=== PATIENT | female | born 1990 ===

== ENCOUNTER 2020-08-27 08:00 | Inpatient (IN) | payer OTHER ==
[2020-08-30] MEDS: Lactated Ringers 1,000 ML IV SCH ×2 (05:45→06:22)
[2020-08-30] MEDS ORDERED: Sodium Chloride 0.9% 10 ML Syringe FLUSH PRN (06:00)
--- NOTE | 2020-08-30 06:27 | PCM.PREANE ---
Preanesthetic Assessment - Procedure Proposed Procedure: Repeat - Anesthesia/Transfusion/Family Hx Anesthesia History: Prior Anesthesia Without Reaction Family History of Anesthesia Reaction: No Transfusion History: No Prior Transfusion(s) Intubation History: Unknown - Review of Systems General: No Symptoms Pulmonary: No Symptoms, Cough Cardiovascular: No Symptoms Gastrointestinal: No Symptoms (GERD) Neurological: No Symptoms Other: Reports: None, Easy Bruising, Sinus Problem - Physical Assessment NPO Status Date: 08/29/20 NPO Status Time: 23:30 Vital Signs: Last Vital Signs Temp 36.7 C 08/30/20 05:30 Pulse 93 08/30/20 05:30 Resp 16 08/30/20 05:30 BP 123/72 08/30/20 05:30 Pulse Ox 100 08/30/20 05:30 Height: 1.52 m Weight: 91.217 kg ASA Class: 2 Mental Status: Alert & Oriented x3 Airway Class: Mallampati = 2 Dentition: Reports: Normal Dentition, Caries Thyro-Mental Finger Breadths: 3 Mouth Opening Finger Breadths: 3 ROM/Head Extension: Full Lungs: Clear to Auscultation, Normal Respiratory Effort Cardiovascular: Regular Rate, Regular Rhythm, No Murmurs - Lab Values: Laboratory Last Values WBC 11.42 K/mm3 (3.98-10.04) H 08/30/20 06:04 RBC 3.88 M/mm3 (3.98-5.22) L 08/30/20 06:04 Hgb 10.2 gm/dl (11.2-15.7) L D 08/30/20 06:04 Hct 31.9 % (34.1-44.9) L 08/30/20 06:04 MCV 82.2 fl (79.4-94.8) D 08/30/20 06:04 MCH 26.3 pg (25.6-32.2) 08/30/20 06:04 MCHC 32.0 g/dl (32.2-35.5) L 08/30/20 06:04 RDW Std Deviation 50.9 fL (36.4-46.3) H 08/30/20 06:04 Plt Count 219 K/mm3 (182-369) D 08/30/20 06:04 MPV 9.8 fl (9.4-12.3) 08/30/20 06:04 Neut % (Auto) 73.8 % (34.0-71.1) H 08/30/20 06:04 Lymph % (Auto) 16.1 % (19.3-51.7) L 08/30/20 06:04 [facility] % (Auto) 8.1 % (4.7-12.5) 08/30/20 06:04 Eos % (Auto) 1.3 (0.7-5.8) 08/30/20 06:04 Baso % (Auto) 0.2 % (0.1-1.2) 08/30/20 06:04 Neut # (Auto) 8.43 K/mm3 (1.56-6.13) H 08/30/20 06:04 Lymph # (Auto) 1.84 K/mm3 (1.18-3.74) 08/30/20 06:04 [facility] # (Auto) 0.92 K/mm3 (0.24-0.36) H 08/30/20 06:04 Eos # (Auto) 0.15 K/mm3 (0.04-0.36) 08/30/20 06:04 Baso # (Auto) 0.02 K/mm3 (0.01-0.08) 08/30/20 06:04 Above labs reviewed and noted and within acceptable ranges to proceed with scheduled procedure. - Allergies Allergies/Adverse Reactions: Allergies Allergy/AdvReac Type Severity Reaction Status Date / Time No Known Allergies Allergy Verified 08/30/20 00:20 - Anesthesia Plan Pre-Op Medication Ordered: None - Acknowledgements Anesthesia Type Planned: Spinal Pt an Appropriate Candidate for the Planned Anesthesia: Yes Alternatives and Risks of Anesthesia Discussed w Pt/Guardian: Yes Pt/Guardian Understands and Agrees with Anesthesia Plan: Yes PreAnesthesia Questionnaire [employer] History: Reports: Other OB/BYN History: C/S 2012,2016 Endocrine/Metabolic History: Reports: Obesity/BMI 30+ Hematologic History: Reports: Anemia, Iron Deficiency Other Hematologic History: Iron transfusion during this . - Past Surgical History HEENT Surgical History: Reports: Tonsillectomy GI Surgical History: Reports: Cholecystectomy Other GI Surgeries/Procedures: 2015 Female Surgical History: Reports: Breast Implant, Section - SUBSTANCE USE Tobacco Use Status *Q: Never Tobacco User Tobacco Use Within Last Twelve Months: No Second Hand Smoke Exposure: No Recreational Drug Use History: No - HOME MEDS Home Medications: Home Meds Cyclobenzaprine [Flexeril] 5 mg PO TID PRN 08/29/20 [History] Ferrous Sulfate 325 mg PO BID 08/29/20 [History] Ondansetron [Zofran ODT] 8 mg PO Q6H PRN 08/29/20 [History] Pnv No.95/Ferrous Fum/Folic AC [ Vitamin Tablet] 1 tab PO DAILY 08/29/20 [History] Promethazine [Phenergan] 25 mg PO Q6HR PRN 08/29/20 [History] polyethylene glycoL 3350 [MiraLAX] 17 gm PO DAILY 08/29/20 [History] - CURRENT (IN HOUSE) MEDS Current Meds: Current Medications Citric Acid/Sodium Citrate (Bicitra Solution) 30 ml PO ONETIME ONE Stop: 08/30/20 06:46 Cefazolin Sodium/Dextrose 2 gm (/ Premix) 50 mls @ 100 mls/hr IV ONETIME ONE Stop: 08/30/20 07:29 Oxytocin/Lactated Ringer's (Pitocin In Lr 10 Units/1,000 Ml) 10 unit in 1,000 mls @ 100 mls/hr IV ASDIRECTED RACHAEL Lactated Ringer's (Ringers, Lactated) 1,000 mls @ 125 mls/hr IV ASDIRECTED RACHAEL Last Admin: 08/30/20 06:22 Dose: 125 mls/hr Documented by: Metoclopramide HCl (Reglan) 10 mg IVPUSH ONETIME ONE Stop: 08/30/20 06:46 Sodium Chloride (Saline Flush) 10 ml FLUSH ASDIRECTED PRN PRN Reason: Keep Vein Open
[2020-08-30] MEDS ORDERED: Ondansetron 4 MG/2 ML SDV ONE (06:40)
[2020-08-30] MEDS ORDERED: ceFAZolin 1 GM Vial ONE (06:40)
[2020-08-30] MEDS ORDERED: Oxytocin 10 Units/1 ML SDV ONE (06:40)
[2020-08-30] MEDS ORDERED: Morphine PF 10 MG/10 ML SDV ONE (06:40)
[2020-08-30] MEDS ORDERED: Lactated Ringers 2,000 ML ONE (06:40)
[2020-08-30] MEDS ORDERED: Ketorolac 30 MG/ML SDV ONE (06:40)
[2020-08-30] MEDS ORDERED: Citric Acid/Sodium Citrate Solution 30 ML Cup PO ONE (06:45)
[2020-08-30] MEDS ORDERED: Metoclopramide 10 MG/2 ML SDV IVPUSH ONE (06:45)
--- NOTE | 2020-08-30 06:48 | PCM.OPNOTE ---
- General Post-Op/Procedure Note Date of Surgery/Procedure: 08/30/20 Operative Procedure(s): Repeat low transverse Findings: Moderate scar tissue between the rectus and fascia. Thin lower uterine segment. Baby girl in a vertex presentation. APGARS of 7 & 8. Weight of 3,800 grams. Normal appearance of the uterus, fallopian tubes, and ovaries Pre Op Diagnosis: History of x2. 39 weeks gestation Post-Op Diagnosis: Same Anesthesia Technique: Spinal Primary Surgeon: Maria E Remy Secondary Surgeon: Dhara Chavira Anesthesia Provider: Breanna Torres Reason Jack Setter Was Necessary: BMI of patient. Speed and safety of procedure Pathology: Cord blood collected. Placenta discarded Fluid Replacement, Intraop: 1,100 Output, Urine Amount: 150 EBL in mLs: 600 Complications: None Condition: Good Free Text/Narrative:: The risks, benefits, indications, potential complications, and alternatives were explained to the patient and informed consent obtained. After induction of anesthesia, the patient was placed in a supine position and then draped and prepped in the usual sterile manner. A Pfannenstiel incision was made and carried down through the subcutaneous tissue to the fascia. Fascial incision was made and extended transversely. The fascia was from the underlying rectus tissue superiorly and inferiorly. The peritoneum was identified and entered. Peritoneal incision was extended longitudinally. No bladder flap made. A low transverse uterine incision was made sharply with a scalpel and extended bluntly in a cephalocaudad direction. A baby girl was delivered from a vertex presentation with APGARS as above. After the umbilical cord was clamped and cut cord blood was obtained for evaluation. The placenta was removed intact and appeared normal. The uterus was exteriorized and cleared of clots. The uterine outline, tubes and ovaries appeared normal. The uterine incision was closed with running locked sutures of 0 Vicryl. Hemostasis was noted. The uterus was then placed back into the abdomen. The infracolic gutters were cleared of blood clots. Inspection at this time showed bleeding from perforating vessels in the rectus bilaterally. This bleeding was controlled with several interrupted sutures of 0 Vicryl and also application of Willy Seal. The fascia was then reapproximated with running sutures of 0 Vicryl. The subcutaneous tissue was irrigated with sterile warm normal saline, hemostasis obtained with cautery. This layer was closed with a running 0 Vicryl. The skin was reapproximated with running Subcuticular 4-0 Monocryl sutures. Instrument, sponge, and needle counts were correct prior the abdominal closure and at the conclusion of the case.
[2020-08-30] MEDS ORDERED: ceFAZolin 2 GM in Premix Bag 1 BAG IV ONE (07:00)
[2020-08-30] MEDS ORDERED: Albuterol 0.083% 2.5 MG/3 ML Neb Soln NEB PRN (07:35)
[2020-08-30] MEDS ORDERED: ePHEDrine 50 MG/ML SDV IVPUSH PRN (07:35)
[2020-08-30] MEDS ORDERED: Ondansetron 4 MG/2 ML SDV IVPUSH PRN (07:35)
[2020-08-30] MEDS ORDERED: diphenhydrAMINE 50 MG/ML SDV IVPUSH PRN ×2 (07:35→09:30)
[2020-08-30] MEDS ORDERED: HYDROmorphone 0.5 MG/0.5 ML Syringe IVPUSH PRN (07:35)
[2020-08-30] MEDS ORDERED: fentaNYL 100 MCG/2 ML SDV IVPUSH PRN (07:35)
[2020-08-30] MEDS ORDERED: Oxytocin/Lactated Ringers 10 UNIT/1,000 ML BAG IV SCH (08:00)
--- NOTE | 2020-08-30 08:59 | PCM.POSTAN ---
POST ANESTHESIA ASSESSMENT - MENTAL STATUS Mental Status: Alert - VITAL SIGNS Vital Signs: Last Vital Signs Temp 97.6 08/30/20 0853 Pulse 73 08/30/20 0853 Resp 22 08/30/20 0853 BP 95/57 08/30/20 0853 Pulse Ox 96% 08/30/20 0853 - RESPIRATORY Respiratory Status: Respiratory Rate WNL, Airway Patent, O2 Saturation Stable, Supplemental Oxygen - CARDIOVASCULAR CV Status: Pulse Rate WNL, Blood Pressure Stable - GASTROINTESTINAL GI Status: No Symptoms - POST OP HYDRATION Hydration Status: Adequate & Stable
[2020-08-30] MEDS ORDERED: Ondansetron 4 MG/2 ML SDV IV PRN (09:30)
[2020-08-30] MEDS ORDERED: Acetaminophen/oxyCODONE 325-5 MG Tab PO PRN (09:30)
[2020-08-30] MEDS ORDERED: Dextrose 5%-Lactated Ringers 1,000 ML IV SCH (09:30)
[2020-08-30] MEDS: Ketorolac 30 MG/ML SDV IVPUSH SCH ×2 (15:18→22:00)
--- NOTE | 2020-08-30 18:49 | PCM48HPAN ---
Post Anesthesia Note - EVALUATION WITHIN 48HRS OF ANESTHETIC Vital Signs in Normal Range: Yes Patient Participated in Evaluation: Yes Respiratory Function Stable: Yes Airway Patent: Yes Cardiovascular Function Stable: Yes Hydration Status Stable: Yes Pain Control Satisfactory: Yes Nausea and Vomiting Control Satisfactory: Yes Mental Status Recovered: Yes Vital Signs: Last Vital Signs Temp 97.6 F 08/30/20 12:00 Pulse 83 08/30/20 13:38 Resp 16 08/30/20 18:00 BP 110/62 08/30/20 12:00 Pulse Ox 98 08/30/20 18:00
[2020-08-30] MEDS: Docusate Sodium 100 MG Cap PO PRN (22:26)
[2020-08-31] MEDS: Ketorolac 30 MG/ML SDV IVPUSH SCH (04:00)
[2020-08-31] MEDS: Acetaminophen/oxyCODONE 325-5 MG Tab PO PRN ×4 (09:40→23:30)
[2020-08-31] MEDS: Docusate Sodium 100 MG Cap PO PRN (09:40)
[2020-08-31] MEDS: Ibuprofen 600 MG Tab PO PRN ×2 (13:03→19:09)
[2020-09-01] MEDS: Ibuprofen 600 MG Tab PO PRN ×2 (02:18→09:04)
[2020-09-01] MEDS: Acetaminophen/oxyCODONE 325-5 MG Tab PO PRN ×2 (03:40→09:04)
--- NOTE | 2020-09-01 08:30 | PCM.DCSUM1 ---
Discharge Summary - Hospital Course Free Text/Narrative:: Christi is a 30-year-old multigravida female who was admitted on the a.m. of 08/30/2020 for elective repeat section. Please see admission history and physical. Patient was taken to section and delivered a viable, 3800 g female infant with Apgars of 7 and 8. There is normal appearance of uterus fallopian tubes and ovaries. There was some extra bleeding with moderate scarring between the rectus and fascial layers of the abdominal wall. These were controlled without problems. Postoperatively pain was controlled with Duramorph and Toradol initially and switched to ibuprofen and Percocet after 24 hours. Her postoperative recovery was unremarkable. Vital signs remained stable, patient remained afebrile and ambulatory activity was normal. She has minimal lochia. Incision appears to be healing well. She is bottlefeeding. Patient is discharged to home on 09/01/2020. Discharge instructions are given. Condition: Good. Diagnosis: Stroke: No - Discharge Data Discharge Date: 09/01/20 Discharge Disposition: Home, Self-Care 01 Condition: Good - Referral to Home Health Primary Care Physician: Maria E Remy MD - Patient Summary/Data Operative Procedure(s) Performed: Repeat low transverse - Patient Instructions Diet: Regular Diet as Tolerated Activity: As Tolerated (The course of tampons until bleeding resolves. No lifting greater than 15 pounds or driving a car x1 week.) Driving: Do Not Drive Showering/Bathing: May Shower Wound/Incision Care: Keep Operative Site/Wound Site Clean and Dry Notify Provider of: Fever, Increased Pain, Swelling and Redness, Nausea and/or Vomiting - Discharge Plan Home Medications: Home Meds Cyclobenzaprine [Flexeril] 5 mg PO TID PRN 08/29/20 [History] Ferrous Sulfate 325 mg PO BID 08/29/20 [History] Pnv No.95/Ferrous Fum/Folic AC [ Vitamin Tablet] 1 tab PO DAILY 08/29/20 [History] polyethylene glycoL 3350 [MiraLAX] 17 gm PO DAILY 08/29/20 [History] Acetaminophen/oxyCODONE [Percocet 325-5 MG] 2 tab PO Q4H PRN tablet 09/01/20 [Rx] Ibuprofen [Motrin] 600 mg PO Q6H PRN tablet 09/01/20 [Rx] Referrals: Maria E Remy MD [Primary Care Provider] - ([facility] to 6 weeks. Patient to call for an appointment.) - Discharge Summary/Plan Comment DC Time >30 min.: No Discharge Summary/Plan Comment: Discharge instructions: 1. Discharge home 2. Diet, activity and follow-up discussed with patient. 3. Precautions given concern increased pain, bleeding, temperature, signs/symptoms of DVT/PE. 4. Medications per home medication was printed, discussed with and given to the patient. 5. [facility] weeks[facility] to make an appointment. Diagnosis: 1. Term -delivered 2. History of previous section affecting this pregnancydelivered Condition: Good - Patient Data Vitals - Most Recent: Last Vital Signs Temp 36.6 C 09/01/20 03:38 Pulse 67 09/01/20 03:38 Resp 14 09/01/20 03:38 BP 115/68 09/01/20 03:38 Pulse Ox 100 09/01/20 03:38 Weight - Most Recent: 91.217 kg I&O - Last 24 hours: Intake & Output 08/31/20 09/01/20 09/01/20 22:59 06:59 14:59 Intake Total 240 Balance 240 Med Orders - Current: Current Medications Albuterol (Proventil Neb Soln) 2.5 mg NEB ONETIME PRN PRN Reason: Cough Diphenhydramine HCl (Benadryl) 25 mg IVPUSH Q6H PRN PRN Reason: pruritis Last Admin: 08/30/20 12:16 Dose: 25 mg Documented by: Diphenhydramine HCl (Benadryl) 25 mg IVPUSH Q6H PRN PRN Reason: Itching or Nausea Docusate Sodium (Colace) 100 mg PO Q12H PRN PRN Reason: Constipation Last Admin: 08/31/20 09:40 Dose: 100 mg Documented by: Ephedrine Sulfate (Ephedrine Sulfate) 5 mg IVPUSH ASDIRECTED PRN PRN Reason: Hypotension Fentanyl (Sublimaze) 50 mcg IVPUSH Q20M PRN PRN Reason: Pain Hydromorphone HCl (Dilaudid) 0.5 mg IVPUSH Q10M PRN PRN Reason: Pain (severe 7-10) Ibuprofen (Motrin) 600 mg PO Q6H PRN PRN Reason: mild pain or fever Last Admin: 09/01/20 02:18 Dose: 600 mg Documented by: Ondansetron HCl (Zofran) 4 mg IVPUSH ONETIME PRN PRN Reason: Nausea/Vomiting Ondansetron HCl (Zofran) 4 mg IV Q8H PRN PRN Reason: Nausea/Vomiting Oxycodone/Acetaminophen (Percocet 325-5 Mg) 1 tab PO Q4H PRN PRN Reason: Pain (moderate 4-6) Last Admin: 09/01/20 03:40 Dose: 1 tab Documented by: Oxycodone/Acetaminophen (Percocet 325-5 Mg) 2 tab PO Q4H PRN PRN Reason: Pain (severe 7-10) Discontinued Medications Cefazolin Sodium (Ancef) Confirm Administered Dose 2 gm .ROUTE .[facility] ONE Stop: 08/30/20 06:41 Citric Acid/Sodium Citrate (Bicitra Solution) 30 ml PO ONETIME ONE Stop: 08/30/20 06:46 Last Admin: 08/30/20 07:26 Dose: 30 ml Documented by: Cefazolin Sodium/Dextrose 2 gm (/ Premix) 50 mls @ 100 mls/hr IV ONETIME ONE Stop: 08/30/20 07:29 Last Admin: 08/30/20 14:29 Dose: Not Given Documented by: Oxytocin/Lactated Ringer's (Pitocin In Lr 10 Units/1,000 Ml) 10 unit in 1,000 mls @ 100 mls/hr IV ASDIRECTED [facility] Lactated Ringer's (Ringers, Lactated) 1,000 mls @ 125 mls/hr IV ASDIRECTED [facility] Last Admin: 08/30/20 06:22 Dose: 125 mls/hr Documented by: Lactated Ringer's (Ringers, Lactated) Confirm Administered Dose 2,000 mls @ as directed .ROUTE .[facility] ONE Stop: 08/30/20 06:41 Dextrose/Lactated Ringer's (Dextrose 5%-Lactated Ringers) 1,000 mls @ 125 mls/hr IV ASDIRECTED [facility] Stop: 08/30/20 17:29 Last Admin: 08/30/20 12:18 Dose: 125 mls/hr Documented by: Ketorolac Tromethamine (Toradol) Confirm Administered Dose 30 mg .ROUTE .[facility] ONE Stop: 08/30/20 06:41 Ketorolac Tromethamine (Toradol) 30 mg IVPUSH Q6H RACHAEL Stop: 08/31/20 03:01 Last Admin: 08/31/20 04:00 Dose: 30 mg Documented by: Metoclopramide HCl (Reglan) 10 mg IVPUSH ONETIME ONE Stop: 08/30/20 06:46 Last Admin: 08/30/20 07:27 Dose: 10 mg Documented by: Miscellaneous Medication (Phenylephrine 1 Mg/10 Ml-Ns) Confirm Administered Dose 1 mg .ROUTE .[facility] ONE Stop: 08/30/20 06:41 Miscellaneous Medication (Phenylephrine 1 Mg/10 Ml-Ns) 0 mg IVPUSH ONETIME ONE Stop: 08/30/20 07:36 Last Admin: 08/30/20 14:29 Dose: Not Given Documented by: Morphine Sulfate (Duramorph Pf) Confirm Administered Dose 10 mg .ROUTE .[facility] ONE Stop: 08/30/20 06:41 Ondansetron HCl (Zofran) Confirm Administered Dose 4 mg .ROUTE .STK-MED ONE Stop: 08/30/20 06:41 Oxytocin (Pitocin) Confirm Administered Dose 10 unit .ROUTE .STK-MED ONE Stop: 08/30/20 06:41 Sodium Chloride (Saline Flush) 10 ml FLUSH ASDIRECTED PRN PRN Reason: Keep Vein Open
[2020-09-01] MEDS: Docusate Sodium 100 MG Cap PO PRN (09:04)
== END 2020-09-01 09:25 | disposition home or self-care (01) | DRG 788 ==
LOC: JD.MS 08-30 05:18 → JD.OB 08-30 11:45
PROVIDERS: ADMIT Obstetrics & Gynecology; ATTEND Obstetrics & Gynecology
PROC: 10D00Z1 Extraction of Products of Conception, Low, Open Approach (ICD-10-PCS; principal; 2020-08-30)
DX: O34.211 Maternal care for low transverse scar from previous cesarean delivery (principal); Z37.0 Single live birth; Z3A.37 37 weeks gestation of pregnancy; O99.02 Anemia complicating childbirth; D64.9 Anemia, unspecified; Z90.49 Acquired absence of other specified parts of digestive tract
CPT/HCPCS: 01961; 36415; 59025; 85025; 85027; 86592; 86850; 86900; 86901; A9270-GY; J0690; J1200; J1885; J2270; J2370; J2405; J2590; J2765; J7120; J7121